=== PATIENT | male | born 1965 | race Hispanic/Latino ===

== ENCOUNTER 2022-02-13 07:32 | Emergency (ER) | payer BC, OTHER ==
[~2022-02-13] VITALS: Ht 175.3 cm; Wt 81.6 kg
[2022-02-13] MEDS ORDERED: LIDOCAINE HCL 1% 20 ML VIAL INJ STA (08:47)
[2022-02-13] MEDS ORDERED: CEFTRIAXONE 1G VIAL IM ONE (09:00)
[2022-02-13] MEDS ORDERED: RABIES IMMUNE GLOBULIN/THIMER 150 UNITS/ML SYG IM ONE (09:00)
[2022-02-13 09:04] VITALS: BP 151/94
[2022-02-13] MEDS ORDERED: CEPH500B PO (09:57)
== END 2022-02-13 09:45 | disposition home or self-care (01) ==
LOC: EDH 07:32
DX: S81.811A Laceration without foreign body, right lower leg, initial encounter (principal); Z88.8 Allergy status to other drugs, medicaments and biological substances; Z90.49 Acquired absence of other specified parts of digestive tract; W54.0XXA Bitten by dog, initial encounter; Y93.89 Activity, other specified; Y92.89 Other specified places as the place of occurrence of the external cause; Y99.8 Other external cause status
CPT/HCPCS: 12002; 73590; 96372 ×2; 99284; J0696

== ENCOUNTER 2022-02-19 07:56 | Emergency (ER) | payer BC ==
[~2022-02-19] VITALS: Ht 175.3 cm; Wt 83.5 kg
[~2022-02-19 07:56] MED LIST: CEPH500B PO
[2022-02-19 07:58] VITALS: BP 157/99
[2022-02-19] MEDS ORDERED: CEPH500B PO (08:22)
== END 2022-02-19 08:28 | disposition home or self-care (01) ==
LOC: EDH 07:56
DX: S81.811D Laceration without foreign body, right lower leg, subsequent encounter (principal); Z88.8 Allergy status to other drugs, medicaments and biological substances; Z90.49 Acquired absence of other specified parts of digestive tract; W54.0XXD Bitten by dog, subsequent encounter

== ENCOUNTER 2022-04-23 17:43 | Emergency (ER) | payer BC ==
[~2022-04-23] VITALS: Ht 175.3 cm; Wt 81.6 kg
[2022-04-23 17:49] VITALS: BP 160/92
[2022-04-23] MEDS ORDERED: CEPH500B PO (18:31)
== END 2022-04-23 18:34 | disposition home or self-care (01) ==
LOC: EDH 17:43
DX: K61.1 Rectal abscess (principal); Z88.1 Allergy status to other antibiotic agents; Z90.49 Acquired absence of other specified parts of digestive tract
CPT/HCPCS: 46040